=== PATIENT | female | born 1980 | race American Indian/Alaskan Native ===

== ENCOUNTER 2018-12-03 18:10 | Inpatient (IN) | payer OTHER, MEDICAID ==
[2018-12-03] MEDS ORDERED: NACL 0.9% 1000 ML 1,000 ML IV ONE (18:14)
--- NOTE | 2018-12-03 18:17 | Event Note ---
ED Screening Note Date of service: 12/03/18 Time: 18:17 ED Screening Note: 38 y/o female comes in for hyperglycemia. Postpartem delivery 11/26/18. History of gestational diabetes and elevated blood pressure. This initial assessment/diagnostic orders/clinical plan/treatment(s) is/are subject to change based on patients health status, clinical progression and re- assessment by fellow clinical providers in the ED. Further treatment and workup at subsequent clinical providers discretion. Patient/guardian urged not to elope from the ED as their condition may be serious if not clinically assessed and managed. Initial orders include:
--- NOTE | 2018-12-03 18:35 | Emergency Department Report ---
ED General Adult HPI - General Chief complaint: Hypoglycemia Stated complaint: HEADACHE/WEAKNESS/HYPERGLYCEMIA Time Seen by Provider: 12/03/18 18:20 Source: patient Mode of arrival: Ambulatory Limitations: No Limitations - History of Present Illness Initial comments: Patient is a 38-year-old female that presents emergency room with complaints of new onset seizure. Mother is at bedside and states that the patient was lying in bed and began shaking and loss consciousness and her eyes rolled back. Patient does not have a history of seizure. Patient states her only history of gestational diabetes. Patient states this time her only complaint is headache and weakness. EMS states that when they initially evaluated the patient sugar was in the 50s a nd was given D50. Sugar has improved. -: Sudden Location: head Severity scale (0 -10): 10 Consistency: constant Improves with: none Worsens with: none Associated Symptoms: confusion, headaches, malaise, weakness. denies: chest pain, cough, fever/chills Treatments Prior to Arrival: none - Related Data Allergies Allergy/AdvReac Type Severity Reaction Status Date / Time No Known Allergies Allergy Verified 12/03/18 18:20 ED Review of Systems ROS: Stated complaint: HEADACHE/WEAKNESS/HYPERGLYCEMIA Other details as noted in HPI Constitutional: malaise, weakness. denies: chills, fever Eyes: denies: eye pain, eye discharge, vision change ENT: denies: ear pain, throat pain Respiratory: denies: cough, shortness of breath, wheezing Cardiovascular: denies: chest pain, palpitations Endocrine: no symptoms reported Gastrointestinal: denies: abdominal pain, nausea, diarrhea Genitourinary: denies: urgency, dysuria, discharge Musculoskeletal: denies: back pain, joint swelling, arthralgia Skin: denies: rash, lesions Neurological: headache, weakness, confusion. denies: paresthesias Psychiatric: denies: anxiety, depression Hematological/Lymphatic: denies: easy bleeding, easy bruising ED Past Medical Hx - Past Medical History Previous Medical History?: Yes Hx Diabetes: Yes (gestational diabetes) - Surgical History Past Surgical History?: No - Family History Family history: no significant - Social History Smoking Status: Never Smoker Substance Use Type: None ED Physical Exam - General Limitations: No Limitations General appearance: alert, in no apparent distress - Head Head exam: Present: atraumatic, normocephalic - Eye Eye exam: Present: normal appearance, PERRL Pupils: Present: normal accommodation - ENT ENT exam: Present: mucous membranes moist - Neck Neck exam: Present: normal inspection - Respiratory Respiratory exam: Present: normal lung sounds bilaterally. Absent: respiratory distress - Cardiovascular Cardiovascular Exam: Present: regular rate, normal rhythm. Absent: systolic m urmur, diastolic murmur, rubs, gallop - GI/Abdominal GI/Abdominal exam: Present: soft, normal bowel sounds. Absent: distended, tenderness, guarding - Rectal Rectal exam: Present: deferred - Extremities Exam Extremities exam: Present: normal inspection - Back Exam Back exam: Present: normal inspection - Neurological Exam Neurological exam: Present: alert, oriented X3 - Psychiatric Psychiatric exam: Present: normal affect, normal mood - Skin Skin exam: Present: warm, dry, intact, normal color. Absent: rash ED Course Vital Signs 12/03/18 12/03/18 12/03/18 18:14 18:16 18:20 Temperature 99.4 F Pulse Rate 87 83 88 Respiratory 30 H 42 H 16 Rate Blood Pressure 167/91 Blood Pressure [Left] O2 Sat by Pulse 93 94 Oximetry 12/03/18 12/03/18 12/03/18 18:30 18:45 18:46 Temperature Pulse Rate 84 84 78 Respiratory 29 H 20 17 Rate Blood Pressure 167/91 127/101 Blood Pressure 127/101 [Left] O2 Sat by Pulse 97 Oximetry 12/03/18 12/03/18 12/03/18 19:00 19:15 19:30 Temperature Pulse Rate 90 Respiratory 24 Rate Blood Pressure 169/90 187/89 197/98 Blood Pressure 187/89 [Left] O2 Sat by Pulse 96 Oximetry 12/03/18 12/03/18 12/03/18 19:45 20:00 20:15 Temperature Pulse Rate 81 90 Respiratory 18 18 Rate Blood Pressure 202/101 205/114 199/94 Blood Pressure 202/101 205/114 [Left] O2 Sat by Pulse 97 96 Oximetry 12/03/18 12/03/18 12/03/18 20:25 20:30 20:46 Temperature Pulse Rate 68 71 76 Respiratory 43 H 38 H Rate Blood Pressure 199/94 205/95 196/94 Blood Pressure [Left] O2 Sat by Pulse Oximetry 12/03/18 12/03/18 12/03/18 20:50 21:23 21:30 Temperature Pulse Rate 87 98 H 97 H Respiratory 43 H 32 H Rate Blood Pressure 191/92 199/94 156/82 Blood Pressure [Left] O2 Sat by Pulse Oximetry 12/03/18 12/03/18 12/03/18 21:42 21:45 22:00 Temperature Pulse Rate 96 H 85 Respiratory 18 22 19 Rate Blood Pressure 163/82 149/69 Blood Pressure [Left] O2 Sat by Pulse Oximetry 12/03/18 12/03/18 12/03/18 22:15 22:30 22:45 Temperature Pulse Rate 81 83 90 Respiratory 41 H 35 H 37 H Rate Blood Pressure 145/70 153/70 168/85 Blood Pressure [Left] O2 Sat by Pulse Oximetry - Reevaluation(s) Reevaluation #1: Patient has a seizure while in the ER. Patient is on a magnesium drip. patient's blood pressure is 205/120. Patient was given 20 mg of labetalol IV 12/03/18 20:13 Reevaluation #2: Patient's blood pressure still elevated. Patient will be given 20 mg hydralazine. Patient also given 2 mg morphine for her headache. 12/03/18 20:45 Reevaluation #3: I discussed plan of care and results with the patient. patient agrees to plan of care and admission. Patient was admitted to our [facility] service. 12/03/18 22:32 - Consultations Consultation #1: I discussed case with our [facility], Dr. Marin. Dr. Marin states the patient is to be transferred back to [facility] 12/03/18 21:30 Consultation #2: [facility] paced for possible transfer. 12/03/18 21:49 Dr. Melgoza at the patient's [facility] has refused to transfer based on her believes that the patient is unstable for transfer to [place]. 12/03/18 22:24 Consultation #3: Dr. Marin consult for admission. Dr. Marin has accepted the patient. Bridge orders placed 12/03/18 22:26 ED Medical Decision Making - Lab Data Result diagrams: 12/03/18 18:45 12/03/18 18:45 - EKG Data -: EKG Interpreted by Me EKG shows normal: sinus rhythm, axis, intervals, QRS complexes, ST-T waves Rate: normal - Radiology Data Radiology results: report reviewed Nonenhanced CT scan brain: INDICATION: Seizures; headaches TECHNIQUE: Routine CT head without contrast. Sagittal and coronal reformatted images were obtained. All CT scans at this location are performed using CT dose reduction for ALARA by means of automated exposure control. COMPARISON: None. FINDINGS: BRAIN / INTRACRANIAL CONTENTS: No acute hemorrhage, mass effect, midline shift, hydrocephalus, or acute, large territorial infarct. No chronic infarct or focal atrophy. Normal brain volume and ventricular/sulcal size for age. No significant white matter abnormality. CRANIOCERVICAL JUNCTION: No significant abnormality. ORBITS: No significant abnormality of visualized orbits. SINUSES / MASTOIDS: No significant abnormality of the visualized paranasal sinuses or mastoid air cells. ADDITIONAL FINDINGS: Normal temporal horn tips suggest normal hippocampi. Incidentally, empty sella is seen. Approximately 5 mm sized densely calcified lesion is seen in the left external auditory canal. This is a benign lesion. One consideration is an osteoma. Soft tissue thickening in the right external auditory canal is probably wax buildup. IMPRESSION: Normal nonenhanced CT scan of the brai - Medical Decision Making Patient is a 38-year-old female who presents emergency room with seizure activity. Patient's 1 week ago. Patient complains upon arrival were confusion, headache. Patient also found by EMS to be hypoglycemic. Patient was immediately placed on magnesium drip. Patient given medications to to treat her hypertension. Patient's headache resolved after her blood pressure decre ased. Patient will be admitted to our [facility] service for further evaluation sugar. I initially tried to transfer the patient back to her primary but her primary care refused transfer. Patient's labs unremarkable. Patient's CT negative. - Differential Diagnosis headache. Seizure. Eclampsia Critical Care Time: Yes Critical care attestation.: If time is entered above; I have spent that time in minutes in the direct care of this critically ill patient, excluding procedure time. Critical Care Time: 55 minutes ED Disposition Clinical Impression: Seizure, Hypoglycemia, eclampsia Headache Qualifiers: Headache type: unspecified Headache chronicity pattern: acute headache Intractability: intractable Qualified Code(s): R51 - Headache Hypertension Qualifiers: Hypertension type: unspecified Qualified Code(s): I10 - Essential (primary) hypertension Disposition: OP ADMIT IP TO THIS HOSP Is pt being admited?: Yes Does the pt Need Aspirin: No Condition: Critical Time of Disposition: 22:32
[2018-12-03] MEDS ORDERED: MAGNESIUM SULFATE 40GM/1000ML 40 GM/1,000 ML BAG IV SCH (19:00)
[2018-12-03 19:02] LABS: Hematocrit 39.9 % (30.3-42.9); Hemoglobin 13.6 gm/dl (10.1-14.3); Mean Corpuscular HGB Conc 34 % (30-34); Mean Corpuscular Volume 83 fl (79-97); Platelet Count 352 K/mm3 (140-440); Red Blood Count 4.81 M/mm3 (3.65-5.03); Red Cell Distribution Width 17.9 % (13.2-15.2)
[2018-12-03 19:21] LABS: Alanine Aminotransferase 28 units/L (7-56); Albumin 3.7 g/dL (3.9-5); BUN/Creatinine Ratio 14; Blood Urea Nitrogen 13 mg/dL (7-17); Calcium 9.4 mg/dL (8.4-10.2); Hemolysis Index 6
[2018-12-03] MEDS ORDERED: NORMODYNE IV ONE (20:13)
[2018-12-03 20:36] LABS: Bacteria,Urine 1+ /HPF (Negative); Bilirubin,Urine NEG (Negative); Blood,Urine LG (Negative); Color,Urine Straw (Yellow); Mucus,Urine FEW /HPF; Urobilinogen,Urine < 2.0 mg/dL (<2.0)
[2018-12-03] MEDS ORDERED: MORPHINE IV ONE (20:44)
[2018-12-03] MEDS ORDERED: MORPHINE ONE (20:44)
[2018-12-03] MEDS ORDERED: APRESOLINE ONE (20:44)
[2018-12-03] MEDS ORDERED: APRESOLINE IV ONE (20:46)
[2018-12-03] MEDS ORDERED: MAXIPIME/NS 2 GM/100 ML 2 GM/100 ML BAG IV ONE (20:49)
[2018-12-03 20:52] LABS: Band Neutrophils # (Manual) 0.1 K/mm3; Basophils % (Manual) 0 % (0.0-1.8); Ovalocytes Few; Poikilocytosis Few; Total Cells Counted 100
[2018-12-03 20:53] LABS: Platelet Estimate Consistent w Auto
--- NOTE | 2018-12-03 21:47 | Cat Scan Report ---
Nonenhanced CT scan brain: INDICATION: Seizures; headaches TECHNIQUE: Routine CT head without contrast. Sagittal and coronal reformatted images were obtained. A ll CT scans at this location are performed using CT dose reduction for ALARA by means of automated ex posure control. COMPARISON: None. FINDINGS: BRAIN / INTRACRANIAL CONTENTS: No acute hemorrhage, mass effect, midline shift, hydrocephalus, or acu te, large territorial infarct. No chronic infarct or focal atrophy. Normal brain volume and ventricul ar/sulcal size for age. No significant white matter abnormality. CRANIOCERVICAL JUNCTION: No significant abnormality. ORBITS: No significant abnormality of visualized orbits. SINUSES / MASTOIDS: No significant abnormality of the visualized paranasal sinuses or mastoid air magalys ls. ADDITIONAL FINDINGS: Normal temporal horn tips suggest normal hippocampi. Incidentally, empty sella i s seen. Approximately 5 mm sized densely calcified lesion is seen in the left external auditory canal. This i s a benign lesion. One consideration is an osteoma. Soft tissue thickening in the right external lakshmi tory canal is probably wax buildup. IMPRESSION: Normal nonenhanced CT scan of the brain. Signer Name: Yogesh Elliott MD Signed: 12/03/2018 9:43 PM Workstation Name: [id number]
[2018-12-04] MEDS ORDERED: DULCOLAX PR PRN (00:05)
[2018-12-04] MEDS ORDERED: BENADRYL PO PRN (00:05)
[2018-12-04] MEDS ORDERED: ZOFRAN IV PRN (00:05)
[2018-12-04] MEDS ORDERED: TUCKS PAD TP PRN (00:05)
[2018-12-04] MEDS ORDERED: PHENERGAN PR PRN (00:05)
[2018-12-04] MEDS ORDERED: PHENERGAN PO PRN (00:05)
[2018-12-04] MEDS ORDERED: TORADOL IV PRN (00:05)
[2018-12-04] MEDS ORDERED: LANSINOH TP PRN (00:05)
[2018-12-04] MEDS ORDERED: MILK OF MAGNESIA PO PRN (00:05)
[2018-12-04] MEDS ORDERED: TYLENOL PO PRN (00:05)
[2018-12-04] MEDS ORDERED: APRESOLINE IV ONE (00:52)
[2018-12-04] MEDS ORDERED: SODIUM CHLORIDE FLUSH SYRINGE 10 ML IV PRN (01:00)
[2018-12-04] MEDS ORDERED: MAGNESIUM SULFATE 40GM/1000ML 40 GM/1,000 ML BAG IV SCH (01:00)
[2018-12-04] MEDS: IBUPROFEN PO SCH ×3 (01:01→17:18)
[2018-12-04] MEDS: NORCO 5/325 PO PRN ×2 (01:05→10:23)
--- NOTE | 2018-12-04 02:11 | History and Physical Report ---
History of Present Illness Date of examination: 12/03/18 Date of admission: 12/03/18 22:26 Chief complaint: eclampsia History of present illness: Pt is a 38yo BF s/p 11/25/18 @ [facility] presented to [facility] ER with complaints of new onset seizure. Mother was at bedside and stated that the patient was lying in bed and began shaking and loss consciousness and her eyes rolled back. She does not have a history of seizure, and course was complicated with a history of gestational diabetes - diet controlled. She states this time her only complaint is a mild headache. Head CT Scan was WNL. She is currently on IV Magnesium sulfate 2gm/hr Past History Past Medical History: diabetes (GDM) Past Surgical History: no surgical history Family/Genetic History: none Social history: no significant social history, single - Obstetrical History : 4 Medications and Allergies Allergies Allergy/AdvReac Type Severity Reaction Status Date / Time No Known Allergies Allergy Verified 12/03/18 18:20 Active Meds: Active Medications Acetaminophen (Tylenol) 650 mg PO Q4H PRN PRN Reason: Pain MILD(1-3)/Fever >100.5/MARTÍNEZ Acetaminophen/Hydrocodone Bitart ([place] 5/325) 2 each PO Q6H PRN PRN Reason: Pain, Moderate (4-6) Bisacodyl (Dulcolax) 10 mg LA BID PRN PRN Reason: Constipation Diphenhydramine HCl (Benadryl) 25 mg PO Q6H PRN PRN Reason: Itching Docusate Sodium (Colace) 100 mg PO BID DERRICK Ferrous Sulfate (Feosol) 325 mg PO BID [facility] Magnesium Sulfate (Magnesium Sulfate 40gm/1000ml) 40 gm in 1,000 mls @ 50 mls/hr IV DIRECT DERRICK Ibuprofen (Ibuprofen) 600 mg PO Q6HR DERRICK Last Admin: 12/04/18 01:01 Dose: Not Given Documented by: Ketorolac Tromethamine (Toradol) 30 mg IV Q6H PRN PRN Reason: Pain, Moderate (4-6) Stop: 12/09/18 00:04 Magnesium Hydroxide (Milk Of Magnesia) 30 ml PO HS PRN PRN Reason: Constipation Multi-Ingredient Ointment (Lansinoh) 1 applic TP PRN PRN PRN Reason: Sore Nipples Multivitamins/Iron/Calcium ( Vitamin) 1 each PO QDAY DERRICK Ondansetron HCl (Zofran) 4 mg IV Q8H PRN PRN Reason: Nausea And Vomiting Promethazine HCl (Phenergan) 25 mg LA Q6H PRN PRN Reason: Nausea And Vomiting Promethazine HCl (Phenergan) 25 mg PO Q6H PRN PRN Reason: Nausea And Vomiting Sodium Chloride (Sodium Chloride Flush Syringe 10 Ml) 10 ml IV PRN PRN PRN Reason: LINE FLUSH Witch Chelsey/Glycerin (Tucks Pad) 1 each TP PRN PRN PRN Reason: Hemorrhoid/cleansing/soothing Review of Systems All systems: negative - Vital Signs Vital signs: Vital Signs Pulse Resp Pulse Ox 87 30 H 93 12/03/18 18:14 12/03/18 18:14 12/03/18 18:14 Temp Pulse Resp BP Pulse Ox 99.1 F 88 37 H 123/60 96 12/04/18 00:00 12/04/18 02:01 12/03/18 22:45 12/04/18 02:01 12/03/18 20:00 - Physical Exam Breasts: Positive: deferred Cardiovascular: Regular rate Lungs: Positive: Clear to auscultation Abdomen: Positive: normal appearance Genitourinary (Female): Positive: normal external genitalia Vagina: Positive: normal moisture Uterus: Positive: enlarged Extremities: Positive: normal Results Result Diagrams: 12/03/18 18:45 12/03/18 18:45 Abnormal lab results 12/03/18 12/03/18 12/03/18 Range/Units 18:45 18:45 19:00 WBC 12.4 H (4.5-11.0) K/mm3 RDW 17.9 H (13.2-15.2) % Seg Neuts % (Manual) 82.0 H (40.0-70.0) % Lymphocytes % (Manual) 11.0 L (13.4-35.0) % Seg Neutrophils # Man 10.2 H (1.8-7.7) K/mm3 Alkaline Phosphatase 137 H (35-129) units/L Albumin 3.7 L (3.9-5) g/dL HCG, Quant (0-4) mIU/mL Urine WBC (Auto) 28.0 H (0.0-6.0) /HPF 12/03/18 Range/Units 20:13 WBC (4.5-11.0) K/mm3 RDW (13.2-15.2) % Seg Neuts % (Manual) (40.0-70.0) % Lymphocytes % (Manual) (13.4-35.0) % Seg Neutrophils # Man (1.8-7.7) K/mm3 Alkaline Phosphatase (35-129) units/L Albumin (3.9-5) g/dL HCG, Quant 17.54 H (0-4) mIU/mL Urine WBC (Auto) (0.0-6.0) /HPF All other labs normal. Assessment and Plan - Patient Problems (1) eclampsia Onset Date: 12/04/18 Current Visit: Yes Status: Acute Plan to address problem: A: eclampsia - stable on IV Magnesium sulfate P: Will continue IV Magnesium sulfate x 24hrs Begin Labetolol 200mg BID for BP control
[2018-12-04] MEDS: PRENATAL VITAMIN PO SCH (10:22)
[2018-12-04] MEDS: COLACE PO SCH ×2 (10:23→21:38)
[2018-12-04] MEDS: FEOSOL PO SCH ×2 (10:23→21:38)
[2018-12-04] MEDS: NORMODYNE PO SCH ×2 (10:52→21:40)
[2018-12-04] MEDS ORDERED: LACTATED RINGERS 1,000 ML IV SCH (14:00)
[2018-12-04 15:58] LABS: Hematocrit 37.4 % (30.3-42.9); Hemoglobin 12.6 gm/dl (10.1-14.3)
[2018-12-05] MEDS: IBUPROFEN PO SCH ×4 (00:34→23:12)
[2018-12-05] MEDS ORDERED: APRESOLINE IV ONE (05:20)
[2018-12-05] MEDS ORDERED: NORMODYNE PO SCH (07:45)
--- NOTE | 2018-12-05 07:50 | Progress Note ---
Assessment and Plan - Patient Problems (1) eclampsia Onset Date: 12/04/18 Current Visit: Yes Status: Acute Plan to address problem: A: eclampsia - stable. Hypertension - uncontrolled P: Will increase Labetolol to 300mg BID and add Procardia XL 30mg QD for BP control Subjective - Subjective Date of service: 12/05/18 Principal diagnosis: eclampsia Interval history: Pt is a 38yo BF s/p 11/25/18 @ [facility] presented to [facility] ER with complaints of new onset seizure. Mother was at bedside and stated that the patient was lying in bed and began shaking and loss consciousness and her eyes rolled back. She does not have a history of seizure, and course was complicated with a history of gestational diabetes - diet controlled. Head CT Scan was WNL. She received IV Magnesium sulfate, and is currently on Labetolol 200mg BID. Today she denies headaches or blurred vision. Patient reports: appetite normal, voiding normally, pain well controlled, flatus, ambulating normally, no dizzy ambulation, no nauseated Objective - Vital Signs Latest vital signs: Vital Signs Temp Pulse Resp BP BP BP 12/05/18 07:40 75 186/81 12/05/18 07:16 74 158/74 12/05/18 07:15 79 178/84 12/05/18 06:49 71 172/86 12/05/18 06:35 77 173/95 173/95 12/05/18 06:01 70 156/75 156/75 12/05/18 05:56 70 170/64 170/64 12/05/18 05:50 60 200/78 200/78 12/05/18 05:40 61 203/88 12/05/18 05:39 61 203/88 203/88 12/05/18 05:14 62 192/86 12/05/18 04:33 65 182/81 12/05/18 02:33 66 162/73 162/73 12/05/18 02:19 65 189/84 189/84 12/05/18 00:15 98.4 F 80 18 155/67 12/05/18 00:14 80 155/67 12/04/18 23:44 71 141/67 12/04/18 23:30 68 147/67 07/22/19 23:14 64 192/84 12/04/18 22:44 63 163/79 12/04/18 22:14 59 L 192/87 12/04/18 21:44 66 195/84 12/04/18 21:40 67 186/87 12/04/18 21:39 65 186/87 12/04/18 21:14 63 187/86 12/04/18 20:54 99.3 F 67 20 180/86 12/04/18 20:44 67 185/85 12/04/18 20:14 70 183/84 12/04/18 20:04 73 180/86 12/04/18 19:44 73 177/85 12/04/18 19:14 72 166/79 12/04/18 19:08 71 178/85 12/04/18 18:44 68 193/87 12/04/18 18:14 83 180/85 12/04/18 17:44 73 183/86 12/04/18 17:13 78 168/84 12/04/18 17:01 74 170/84 12/04/18 16:41 71 163/82 12/04/18 16:21 71 166/79 12/04/18 16:10 98.2 F 18 12/04/18 16:01 75 147/75 12/04/18 15:41 76 152/83 12/04/18 15:21 77 150/73 12/04/18 15:01 76 157/82 12/04/18 14:41 79 172/87 12/04/18 14:21 82 158/81 12/04/18 14:01 78 161/81 12/04/18 13:51 74 153/72 12/04/18 13:41 73 165/79 12/04/18 13:21 74 161/77 12/04/18 13:01 76 159/77 12/04/18 12:41 78 143/82 12/04/18 12:21 93 H 140/67 12/04/18 12:01 98.8 F 82 20 135/65 135/65 12/04/18 11:41 80 134/69 12/04/18 11:21 79 166/79 12/04/18 11:01 88 161/87 12/04/18 10:45 86 164/88 12/04/18 10:41 88 178/91 12/04/18 10:23 16 12/04/18 10:21 86 164/95 12/04/18 10:01 93 H 171/93 12/04/18 09:41 95 H 143/84 12/04/18 09:21 91 H 142/88 12/04/18 09:01 88 164/85 12/04/18 08:41 90 161/85 12/04/18 08:33 98.9 F 18 12/04/18 08:21 87 142/97 12/04/18 08:01 78 146/68 Intake and Output 12/04/18 12/05/18 12/05/18 22:59 06:59 14:59 Intake Total 920 Output Total 320 1550 Balance -320 -630 Intake: Oral 920 Output: Urine 320 1550 Indwelling Catheter 320 750 Void 800 Other: Total, Intake Amount 120 Total, Output Amount 50 350 - Exam Abdomen: Present: normal appearance, soft Uterus: Present: normal Extremities: Present: normal - Labs Labs: Abnormal lab results 12/04/18 12/04/18 12/04/18 Range/Units 07:21 13:49 19:10 Magnesium 5.60 H 4.00 H 4.30 H (1.7-2.3) mg/dL
[2018-12-05] MEDS: COLACE PO SCH ×2 (10:34→22:43)
[2018-12-05] MEDS: PROCARDIA XL PO SCH (10:35)
[2018-12-05] MEDS: FEOSOL PO SCH ×2 (10:35→22:43)
[2018-12-05] MEDS: NORMODYNE PO SCH ×2 (10:35→22:43)
[2018-12-05] MEDS: PRENATAL VITAMIN PO SCH (10:36)
[2018-12-06] MEDS: IBUPROFEN PO SCH (05:07)
--- NOTE | 2018-12-06 08:19 | Progress Note ---
Assessment and Plan - Patient Problems (1) eclampsia Onset Date: 12/04/18 Current Visit: Yes Status: Resolved Plan to address problem: A: eclampsia - stable. Hypertension - controlled on Labetolol 300mg BID and Procardia XL 30mg QD P: May go home today Follow up with PCP in 48hrs for BP check Subjective - Subjective Date of service: 12/06/18 Principal diagnosis: eclampsia Interval history: Pt is a 38yo BF s/p 11/25/18 @ [facility] presented to [facility] ER with complaints of new onset seizure. Mother was at bedside and stated that the patient was lying in bed and began shaking and loss consciousness and her eyes rolled back. She does not have a history of seizure, and course was complicated with a history of gestational diabetes - diet controlled. Head CT Scan was WNL. She received IV Magnesium sulfate, and is currently on Labetolol 300mg BID and Procardia XL 30mg QD. Today she denies headaches or blurred vision. Patient reports: appetite normal, voiding normally, pain well controlled, flatus, ambulating normally, no dizzy ambulation, no nauseated Objective - Vital Signs Latest vital signs: Vital Signs Temp Pulse Resp BP BP Pulse Ox 12/06/18 04:41 98.5 F 85 20 152/85 94 12/05/18 23:24 98.4 F 82 20 150/82 97 12/05/18 22:44 78 148/78 12/05/18 22:43 78 148/78 12/05/18 19:39 98.5 F 87 20 159/87 96 12/05/18 15:46 98.6 F 70 24 185/87 98 12/05/18 11:45 96 12/05/18 11:37 98.8 F 69 24 178/86 93 12/05/18 09:30 99.2 F 82 18 195/103 97 Intake and Output 12/05/18 12/06/18 12/06/18 22:59 06:59 14:59 Intake Total 480 Balance 480 Intake: Oral 480 Other: Total, Intake Amount 240 Voiding Method Toilet # Voids Void 1 - Exam Breasts: Present: deferred Abdomen: Present: normal appearance, soft
--- NOTE | 2018-12-06 08:43 | Discharge Summary ---
Providers - Providers Date of Admission: 12/03/18 22:26 Date of discharge: 12/06/18 Attending physician: BRADEN RICO Primary care physician: MORRO MCINTOSH Hospitalization Reason for admission: other ( eclampsia) Other procedures: none complications: none Discharge diagnosis: other ( eclampsia - stable) Hospital course: Pt is a 38yo BF s/p 11/25/18 @ [facility] presented to [facility] ER with complaints of new onset seizure. Mother was at bedside and stated that the patient was lying in bed and began shaking and loss consciousness and her eyes rolled back. She does not have a history of seizure, and course was complicated with a history of gestational diabetes - diet controlled. Head CT Scan was WNL. She received IV Magnesium sulfate, and is currently on Labetolol 300mg BID and Procardia XL 30mg QD with good BP control. Today she denies headaches or blurred vision. She will therefore be discharged to home today with plans to follow up with her PCP within 48hrs. Condition at discharge: Good Disposition: DC-01 TO HOME OR SELFCARE - Discharge Diagnoses (1) eclampsia Status: Resolved Plan - Discharge Medications Prescriptions: Ferrous Sulfate [Feosol 325 MG tab] 325 mg PO BID #60 tablet Labetalol [Labetalol 100mg TAB] 300 mg PO BID #60 tablet Ibuprofen [Motrin 600 MG tab] 600 mg PO Q6HR #30 tablet NIFEdipine XL [Procardia Xl] 30 mg PO QDAY #30 tablet - Provider Discharge Summary Activity: routine, no sex for 6 weeks, no heavy lifting 4 weeks, no strenuous exercise Diet: routine Instructions: routine Additional instructions: [] Smoking cessation referral if applicable(refer to patient education folder for contact #) [] Refer to [facility] Booklet Call your doctor immediately for: * Fever > 100.5 * Heavy vaginal bleeding ( >1 pad per hour) * Severe persistent headache * Shortness of breath * Reddened, hot, painful area to leg or breast * Drainage or odor from incision. * Keep incision clean and dry at all times and follow doctor's instructions regarding bathing/showering - Follow up plan Follow up: MORRO MCINTOSH MD [Primary Care Provider] - 48 Hours BRADEN RICO MD [Staff Physician] - 7 Days ROSITA MONTOYA MD [Staff Physician] - 7 Days
[2018-12-06] MEDS: FEOSOL PO SCH (09:36)
[2018-12-06] MEDS: PRENATAL VITAMIN PO SCH (09:36)
[2018-12-06] MEDS: NORMODYNE PO SCH (09:36)
[2018-12-06] MEDS: COLACE PO SCH (09:36)
[2018-12-06] MEDS: NORCO 5/325 PO PRN (09:37)
[2018-12-06] MEDS: PROCARDIA XL PO SCH (09:37)
[2018-12-06 10:02] VITALS: BP 149/92
== END 2018-12-06 11:30 | disposition home or self-care (01) | DRG 776 ==
LOC: ED 18:10 → OB 22:26 → APU 12-04 00:02 → OB 12-05 09:36
PROVIDERS: ADMIT Obstetrics & Gynecology; ATTEND Obstetrics & Gynecology
DX: O15.2 Eclampsia complicating the puerperium (principal); O24.430 Gestational diabetes mellitus in the puerperium, diet controlled; O10.93 Unspecified pre-existing hypertension complicating the puerperium
CPT/HCPCS: 36415; 70450; 80053; 81001; 82805; 82962; 83735; 84702; 84703; 85007; 85014; 85018; 85025; 87086; 93005; 93010; G0378; J0360; J0692; J2270; J3475; J7030; J7120